=== PATIENT | male | born 1955 | race Asian ===

== ENCOUNTER 2022-03-31 19:21 | Emergency (ER) | payer OTHER ==
[~2022-03-31] VITALS: Ht 182.9 cm; Wt 80.3 kg
[2022-03-31 19:21] VITALS: TEMP 98.3
[2022-03-31 20:01] LABS: PLATELET COUNT 38 K/uL (142-355)
[2022-03-31 20:21] LABS: POTASSIUM 3.8 mmol/L (3.6-5.2)
[2022-03-31 22:02] VITALS: BP 123/46
[2022-03-31] MEDS ORDERED: DOK100 MG PO (22:55)
[2022-03-31] MEDS ORDERED: LIPITOR20 MG PO (22:56)
[2022-03-31] MEDS ORDERED: KP FOLIC ACID1 MG PO (22:57)
[2022-03-31] MEDS ORDERED: BASAGLAR K100 UNIT/M SC (22:57)
[2022-03-31] MEDS ORDERED: MULTIVITAMI1 PO (22:58)
[2022-03-31] MEDS ORDERED: OXYB5TAB56 PO (22:59)
[2022-03-31] MEDS ORDERED: LEVO0.0218 PO (22:59)
[2022-03-31] MEDS ORDERED: VITAMIN B-12500 MCG PO (23:00)
[2022-03-31] MEDS ORDERED: TRAZ100T PO (23:00)
[2022-03-31] MEDS ORDERED: [UNRECOGNIZED DRUG - CODE] PO (23:01)
[2022-03-31] MEDS ORDERED: BENZTROPINE0.5 MG PO (23:02)
[2022-03-31] MEDS ORDERED: CLON1TAB18 PO (23:03)
[2022-03-31] MEDS ORDERED: DIVALPROEX500 M1 PO (23:03)
[2022-03-31] MEDS ORDERED: RISPERDAL3 MG PO (23:03)
== END 2022-03-31 22:04 | disposition still patient (30) ==
LOC: ED 19:21
PROVIDERS: Emergency Medicine Emergency Medical Services
DX: F91.8 Other conduct disorders (principal); J18.9 Pneumonia, unspecified organism; Z11.52 Encounter for screening for COVID-19
CPT/HCPCS: 36415; 80053; 85008; 85027; 87040; 87635; 93005; 96360; 96365; 99284; J0696; U0003

== ENCOUNTER 2022-04-28 19:13 | Emergency (ER) | payer OTHER ==
[~2022-04-28] VITALS: Ht 182.9 cm; Wt 80.3 kg
[2022-04-28 19:13] VITALS: TEMP 98.3
[~2022-04-28 19:13] MED LIST: BASAGLAR K100 UNIT/M SC; BENZTROPINE0.5 MG PO; CLON1TAB18 PO; DIVALPROEX500 M1 PO; DOK100 MG PO; KP FOLIC ACID1 MG PO; LEVO0.0218 PO; LIPITOR20 MG PO; MULTIVITAMI1 PO; OXYB5TAB56 PO; RISPERDAL3 MG PO; TRAZ100T PO; VITAMIN B-12500 MCG PO; [UNRECOGNIZED DRUG - CODE] PO
[2022-04-28 19:49] LABS: PLATELET COUNT 136 K/uL (142-355)
[2022-04-28 20:01] LABS: POTASSIUM 4.7 mmol/L (3.6-5.2)
[2022-04-28 20:22] VITALS: BP 137/84
[2022-04-28] MEDS ORDERED: GNP SENNA LAX8.6 MG PO (22:28)
[2022-04-28] MEDS ORDERED: ZIPR20IN IM (22:28)
== END 2022-04-28 20:22 | disposition still patient (30) ==
LOC: ED 19:13
PROVIDERS: Emergency Medicine
DX: R46.89 Other symptoms and signs involving appearance and behavior (principal); J18.9 Pneumonia, unspecified organism; Z11.52 Encounter for screening for COVID-19; Z04.6 Encounter for general psychiatric examination, requested by authority
CPT/HCPCS: 36415; 80053; 85027; 87635; 93005; 99283; U0003

== ENCOUNTER 2022-07-06 21:49 | Emergency (ER) | payer OTHER ==
[~2022-07-06] VITALS: Ht 182.9 cm; Wt 83.9 kg
[~2022-07-06 21:49] MED LIST changes: +ACET-206 PO; +CLON0.5T36 PO; +DIPH50IN IM; +DIPH50IN INJ; +DIVALPROEX250 MG PO; +DIVALPROEX500 MG PO; +DOCU100C10 PO; +DULCOLAX 5MG TAB PO; +ESCI10TA PO; +EUTHYROX25 MCG PO; +GNP SENNA LAX8.6 MG PO; +HUMALOG KW200 UNIT/M SC; +INSU100P SC; +LEVO0.0529 PO; +LORA1TAB17 PO; +QUET100T2 PO; +QUETIAPINE200 MG PO; +SENNOSIDES8.6 MG PO; +ZIPR20CA PO; +ZIPR20IN IM
[2022-07-06 22:48] LABS: POTASSIUM 4.5 mmol/L (3.6-5.2)
[2022-07-06 22:55] LABS: PLATELET COUNT 82 K/uL (142-355)
[2022-07-06 23:15] VITALS: BP 136/75; TEMP 98.6
[2022-07-07] MEDS ORDERED: BISACODYL5 M1 PO (10:50)
[2022-07-07] MEDS ORDERED: CLON0.5T36 PO (10:52)
[2022-07-07] MEDS ORDERED: DIVALPROEX500 M1 PO (10:53)
[2022-07-07] MEDS ORDERED: ZIPRASIDONE HYD40 MG PO (10:54)
[2022-07-07] MEDS ORDERED: TYLENOL325 MG PO (10:59)
[2022-07-07] MEDS ORDERED: LORA1TAB17 PO (11:00)
[2022-07-07] MEDS ORDERED: DIPH50IN INJ (11:05)
[2022-07-07] MEDS ORDERED: ZIPR20IN IM (11:07)
[2022-07-07] MEDS ORDERED: BENADRYL 50 MG PO (11:17)
== END 2022-07-06 23:15 | disposition still patient (30) ==
LOC: ED 21:49
PROVIDERS: Emergency Medicine
DX: F20.89 Other schizophrenia (principal); R45.1 Restlessness and agitation; I10 Essential (primary) hypertension; D64.89 Other specified anemias; Z11.52 Encounter for screening for COVID-19; Z04.6 Encounter for general psychiatric examination, requested by authority
CPT/HCPCS: 36415; 80053; 85027; 87635; 93005; 99283; U0003

== ENCOUNTER 2022-07-17 00:32 | Emergency (ER) | payer OTHER ==
[~2022-07-17] VITALS: Ht 188 cm; Wt 88.0 kg
[~2022-07-17 00:32] MED LIST changes: +BENADRYL 50 MG PO; +BISACODYL5 M1 PO; +LORA2INJ21 IM; +TYLENOL325 MG PO; +ZIPRASIDONE HYD40 MG PO
[2022-07-17 03:33] VITALS: BP 110/76; TEMP 98.9
[2022-07-17 05:14] LABS: PLATELET COUNT 167 K/uL (142-355)
[2022-07-17 05:26] LABS: POTASSIUM 5.3 mmol/L (3.6-5.2)
== END 2022-07-17 03:33 | disposition still patient (30) ==
LOC: ED 00:32
PROVIDERS: Emergency Medicine
DX: F03.911 Unspecified dementia, unspecified severity, with agitation (principal); U07.1 COVID-19; Z04.6 Encounter for general psychiatric examination, requested by authority
CPT/HCPCS: 80053; 85027; 87635; 93005; 99283; U0003

== ENCOUNTER 2022-07-27 22:24 | Emergency (ER) | payer OTHER ==
[~2022-07-27] VITALS: Ht 188 cm; Wt 88.0 kg
[2022-07-27 23:28] LABS: POTASSIUM 4.4 mmol/L (3.6-5.2)
[2022-07-27 23:48] LABS: PLATELET COUNT 201 K/uL (142-355)
[2022-07-28 00:11] VITALS: BP 164/83; TEMP 97.4
[2022-07-28] MEDS ORDERED: LEVO0.0218 PO (10:12)
[2022-07-28] MEDS ORDERED: MEDR10TA4 PO (10:13)
[2022-07-28] MEDS ORDERED: DIPHEN25 MG PO (10:14)
[2022-07-28] MEDS ORDERED: DIVALPROEX500 M1 PO (10:15)
[2022-07-28] MEDS ORDERED: SENNA8.6 MG PO (10:16)
[2022-07-28] MEDS ORDERED: LORA1TAB17 PO (10:17)
[2022-07-28] MEDS ORDERED: HUMALOG KW200 UNIT/M (10:20)
[2022-07-28] MEDS ORDERED: QUETIAPINE200 MG PO (10:21)
[2022-07-28] MEDS ORDERED: LORA2INJ21 INJ (10:22)
== END 2022-07-28 00:11 | disposition still patient (30) ==
LOC: ED 22:24
PROVIDERS: Emergency Medicine
DX: F20.89 Other schizophrenia (principal); R45.1 Restlessness and agitation; Z11.52 Encounter for screening for COVID-19; Z04.6 Encounter for general psychiatric examination, requested by authority
CPT/HCPCS: 36415; 80053; 85027; 87635; 99283; U0003

== ENCOUNTER 2022-09-07 16:42 | Emergency (ER) | payer OTHER ==
[~2022-09-07] VITALS: Ht 188 cm; Wt 88.0 kg
[2022-09-07 16:42] VITALS: TEMP 97.6
[~2022-09-07 16:42] MED LIST changes: +DIPHEN25 MG PO; +HUMALOG KW200 UNIT/M; +LORA2INJ21 INJ; +MEDR10TA4 PO; +MEDROXYPR AC10 MG PO; +SENNA8.6 MG PO
[2022-09-07 17:14] LABS: PLATELET COUNT 135 K/uL (142-355)
[2022-09-07 17:28] LABS: POTASSIUM 5.2 mmol/L (3.6-5.2)
[2022-09-07 18:33] VITALS: BP 147/83
[2022-09-07] MEDS ORDERED: DIVALPROEX500 M1 PO (20:25)
== END 2022-09-07 18:33 | disposition still patient (30) ==
LOC: ED 16:42
PROVIDERS: Emergency Medicine
DX: F20.89 Other schizophrenia (principal); R45.1 Restlessness and agitation; I10 Essential (primary) hypertension; E11.9 Type 2 diabetes mellitus without complications; Z00.8 Encounter for other general examination; Z11.52 Encounter for screening for COVID-19
CPT/HCPCS: 80053; 85027; 87635; 93005; 99283; U0003

== ENCOUNTER 2022-09-22 16:09 | Emergency (ER) | payer OTHER ==
[~2022-09-22] VITALS: Ht 182.9 cm; Wt 93.0 kg
[~2022-09-22 16:09] MED LIST changes: +DIPH25CA90 PO; +INSUINJ20 SC
[2022-09-22] MEDS ORDERED: DIPHENHYDRAM50 MG/ML IM (20:22)
== END 2022-09-22 17:45 | disposition still patient (30) ==
LOC: ED 16:09
DX: R46.89 Other symptoms and signs involving appearance and behavior (principal); R45.1 Restlessness and agitation; Z11.52 Encounter for screening for COVID-19; Z04.6 Encounter for general psychiatric examination, requested by authority
CPT/HCPCS: 87635; 99283; U0003